=== PATIENT | male | born 2000 | race Caucasian/White ===

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

== ENCOUNTER 2021-01-02 03:24 | Emergency (ER) | payer BC ==
[~2021-01-02] VITALS: Ht 182.9 cm; Wt 90.9 kg
[2021-01-02 04:15] VITALS: BP 124/78; PULSE 76
== END 2021-01-02 04:00 | disposition home or self-care (01) ==
LOC: COL.ER 03:24
DX: S01.01XA Laceration without foreign body of scalp, initial encounter (principal); W22.8XXA Striking against or struck by other objects, initial encounter

== ENCOUNTER → 2021-01-15 | Outpatient (CLI) | payer BC ==
[2021-01-15 16:49] VITALS: BP 107/65; PULSE 75; TEMP 97.5
== END ==
LOC: COL.ER 16:34
DX: Z48.02 Encounter for removal of sutures (principal)